=== PATIENT | male | born 1980 | race Caucasian/White ===

== ENCOUNTER 2016-07-06 19:52 | Emergency (ER) | payer OTHER ==
[~2016-07-06] VITALS: Ht 180.3 cm; Wt 93.0 kg
--- NOTE | 2016-07-06 19:57 | ED.ADGEN ---
Adult General Chief Complaint Chief Complaint "... I took a line drive with baseball to my nose....",,," I think I busted it..." HPI HPI Patient is a 36 year old male who presents with above hx and complaints of baseball contusion to nose. Patient has obvious fractured nose and edema. Terminal focus of eyes did not result in double vision. Zygomatic appeared to be intact. Upper maxillary area appeared to be intact. Fundus benign. Open abrasion to bridge of nose. Good hemostasis of the nasal turbinates. No loss of consciousness reported. No dizziness. Patient is ambulatory without problems. Patient is up-to-date with vaccinations. Patient normally follows at [facility]. Review of Systems Review of Systems Constitutional: Denies fever or chills [] Eyes: Denies change in visual acuity, redness, or eye pain [] HENT: Complains of nasal contusion and bleeding Respiratory: Denies cough or shortness of breath [] Cardiovascular: No additional information not addressed in HPI [] GI: Denies abdominal pain, nausea, vomiting, bloody stools or diarrhea [] : Denies dysuria or hematuria [] Musculoskeletal: Denies back pain or joint pain [] Integument: Denies rash or skin lesions [] Neurologic: Denies headache, focal weakness or sensory changes [] Endocrine: Denies polyuria or polydipsia [] Family History Family History Noncontributory Current Medications Current Medications See nursing for home meds Allergies Allergies No known drug allergies Physical Exam Physical Exam Constitutional: Well developed, well nourished, moderate distress, non-toxic appearance. [] HENT: Normocephalic, nasal trauma as noted in history of present illness, bilateral external ears normal, oropharynx moist, no oral exudates, nose good hemostasis [] Eyes: PERRLA, EOMI, conjunctiva normal, no discharge. [] Neck: Normal range of motion, no tenderness, supple, no stridor. [] Cardiovascular:Heart rate regular rhythm, no murmur [] Lungs & Thorax: Bilateral breath sounds clear to auscultation [] Abdomen: Bowel sounds normal, soft, no tenderness, no masses, no pulsatile masses. [] Skin: Warm, dry, no erythema, no rash. [] Back: No tenderness, no CVA tenderness. [] Extremities: No tenderness, no cyanosis, no clubbing, ROM intact, no edema. Splint on left knee Neurologic: Alert and oriented X 3, normal motor function, normal sensory function, no focal deficits noted. DTRs +2 patella and brachial. Psychologic: Affect normal, judgement normal, mood normal. [] Current Patient Data Vital Signs Vital Signs Date Time Temp Pulse Resp B/P Pulse Ox O2 Delivery O2 Flow Rate FiO2 07/06/16 19:58 98.2 83 16 98 Room Air EKG EKG [] Radiology/Procedures Radiology/Procedures CT shows that bilateral orbital beckham are intact. There is some maxillary sinus opacification. There are mildly displaced fractures of right and left nasal bones and fracture of the tip of nasal bone. Head CT shows no shift, mass, edema , bleed, or fracture other than that of the nasal bones. See formal report when available [] Course & Med Decision Making Course & Med Decision Making Pertinent Labs and Imaging studies reviewed. (See chart for details). Sleep with head elevated. Ice packs when necessary. Tylenol ibuprofen for pain. Follow-up primary care. Consider follow-up with ENT. Polysporin to abrasion site 4 times a day until healed. Do not blow nose. You may sniff, but do not blow nose. Return if any concerns. Follow-up primary care. [] Final Impression Final Impression 1. Nasal contusion and fractures [] 2. Abrasions 3. Closed Head Injury Problems: Dragon Disclaimer Dragon Disclaimer This electronic medical record was generated, in whole or in part, using a voice recognition dictation system. OLIVER SILVERIO MD Jul 06, 2016 19:57
[2016-07-06 19:58] VITALS: BP 148/74
--- NOTE | 2016-07-06 20:55 | RAD ---
Examination: CT head and maxillofacial bones without contrast. HISTORY History of hit in the face with a baseball in the region of the nose. COMPARISON None available. TECHNIQUE Axial CT images head were performed without contrast. Axial CT images of the maxillofacial bones was performed without contrast. Coronal sagittal reformats were performed. Exposure: One or more of the following dose reduction technique were utilized for this examination: 1. Automated exposure control. 2.Adjustment of MA and /or KV according to patient size. 3. Use of iterative reconstruction technique. Findings: There is no evidence of midline shift. There is no acute intracranial bleed or extra-axial fluid collection identified. The bilateral orbital globes appear intact. The retro-orbital fat is maintained. The bilateral orbital beckham appear intact. The left maxillary sinus is small and is completely opacified likely due to sinus disease. Small mucous retention cyst or polyp identified in the right maxillary sinus. There are mild displaced fractures of the right and left nasal bones and involving the tip of the nasal bone. There is mild irregularity identified in anterior-most aspect of the nasal septum at its attachment to the nasal bones anteriorly, question fracture. The visualized temporomandibular joint is grossly appears unremarkable. Impression: 1. No acute intracranial findings. 2.Mild displaced fractures of the bilateral nasal bones with questionable fracture of the anterior-most aspect of the nasal septum at its junction with the distal tip of the nasal bone. Electronically signed by: Omar Quevedo (Jul 06, 2016 20:53:59)
== END 2016-07-06 21:20 | disposition home or self-care (01) ==
LOC: ER 20:07
DX: S02.2XXA Fracture of nasal bones, initial encounter for closed fracture (principal); S09.90XA Unspecified injury of head, initial encounter; W21.03XA Struck by baseball, initial encounter; Y93.89 Activity, other specified; Y99.8 Other external cause status; Y92.89 Other specified places as the place of occurrence of the external cause
CPT/HCPCS: 70450; 70486; 99284-25